=== PATIENT | male | born 1960 | race Caucasian/White ===

== ENCOUNTER 2022-07-12 09:41 | Outpatient (CLI) | payer OTHER, SELFPAY ==
--- NOTE | ~2022-07-12 | US_ITS ---
Abdominal Sonogram: Real-time sonographic imaging of the abdomen was performed. Clinical History: Abdominal pain Findings: The liver appears echogenic, with no evidence of mass lesion or bile duct dilatation. Main portal vein demonstrates normal direction of flow. The spleen is normal in size without evidence of focal lesion. The gallbladder is well distended, and appears normal with no evidence of gallstone or wall thickening. The common bile duct measures 5 mm. The visualized pancreas, aorta, and IVC are un remarkable. The right kidney measures 11.5 cm in length and the left kidney measures 12.8 cm. There is no hydronephrosis or renal calculus. Right renal cyst noted. Impression: Diffuse fatty infiltration of the liver. Reviewed, dictated and finalized at location M. NATURALIST Impression: Diffuse fatty infiltration of the liver.
== END 2022-07-12 09:42 | disposition home or self-care (01) ==
PROVIDERS: PCP Internal Medicine; Visit Provider Internal Medicine
DX: R10.9 Unspecified abdominal pain (principal); K76.0 Fatty (change of) liver, not elsewhere classified
CPT/HCPCS: 76700

== ENCOUNTER 2023-03-31 16:31 | Emergency (ER) | payer OTHER, SELFPAY ==
[2023-03-31 16:26] VITALS: BP 155/96; PULSE 114; RESP 18; TEMP 37.2; O2SAT 96
--- NOTE | 2023-03-31 16:46 | PC.NURSE ---
Patient refusing c collar, educated on possible risks. MD aware.
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
== END 2023-03-31 17:14 | disposition left against medical advice (07) ==
LOC: ANHED 16:53
PROVIDERS: Emergency Provider General Practice; PCP Internal Medicine
DX: S06.0XAA Concussion with loss of consciousness status unknown, initial encounter (principal); V28.49XA Other motorcycle driver injured in noncollision transport accident in traffic accident, initial encounter; I10 Essential (primary) hypertension; E78.5 Hyperlipidemia, unspecified; F41.9 Anxiety disorder, unspecified; Z87.891 Personal history of nicotine dependence; Z53.29 Procedure and treatment not carried out because of patient's decision for other reasons
CPT/HCPCS: 99283; L0140

== ENCOUNTER 2024-04-16 01:06 | Day surgery (SDC) | payer OTHER, SELFPAY ==
[2024-03-28 13:54] VITALS: BMI 32.1
[2024-04-16 06:07] VITALS: BP 140/88; PULSE 77; RESP 18; TEMP 36.4; O2SAT 100
[2024-04-16 06:16] VITALS: BMI 35.1
[2024-04-16] MEDS: LACTATED RINGERS 1,000 ML 150 ML IV CONT (06:30)
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
--- NOTE | 2024-04-16 07:32 | PM.HPGS ---
History of Present Illness History of Present Illness Consent: Risks, benefits, and alternatives have been discussed and questions answered. Patient agrees to proceed with procedure. Chief complaint: colon screen Narrative: Salvador Jennings is a 63 year old male here for screening colonoscopy, last one 11 years ago Review of Systems Review of Systems: All systems reviewed & are unremarkable except as noted in HPI and below PMFSH Past Medical History Medical History (Updated 04/16/24 @ 07:33 by Yousuf Michele MD) Anxiety Colon cancer screening Hyperlipidemia Hypertension Social History Social History Years smoked: 7 Smoking status: Former smoker Tobacco type: cigarettes Alcohol intake: current Drinks per week: 10 Alcohol use details: DRINKS Substance use: never Substance use type: does not use Living arrangements: with family Spiritual care concerns: No Meds Home Medications and Allergies Home Medications Medication Instructions Recorded Confirmed Type atorvastatin 10 mg tablet 10 mg PO DAILY 03/28/24 03/28/24 History fluoxetine 20 mg capsule 20 mg PO DAILY 03/28/24 03/28/24 History omeprazole 20 mg capsule,delayed 20 mg PO DAILY 03/28/24 03/28/24 History release psyllium husk 0.4 gram capsule 3 g PO 03/28/24 History (Daily Fiber) valsartan 160 1 tablet PO DAILY 03/28/24 03/28/24 History mg-hydrochlorothiazide 25 mg tablet Allergies Allergy/AdvReac Type Severity Reaction Status Date / Time No Known Allergies Allergy Verified 03/28/24 13:54 Vital Signs Vital Signs - 24 hr 04/16/24 06:07 Temperature 97.6 F Pulse Rate 77 Respiratory Rate 18 Blood Pressure 140/88 Pulse Oximetry 100 Oxygen Delivery Room Air Exam Const: General: comfortable and no acute distress HENMT: Face/Nose/Sinus: Normal nares present Eyes: General: appearance normal, both eyes and all related structures Neck: Neck: no JVD Resp: Auscultation: clear to auscultation bilaterally Cardio: Rate: regular rate Rhythm: regular rhythm GI: Inspection: non-distended GI Palp: Yes Soft to palpation Skin: General skin exam: normal color Neuro: General: gait normal Speech: normal speech Extrem: General: normal to inspection Psych: Mental Status: mental status grossly normal Assessment and Plan Assessment and plan (1) Colon cancer screening: Code(s): Z12.11 - Encounter for screening for malignant neoplasm of colon Status: Acute Assessment and Plan: colonoscopy
[2024-04-16 07:47] VITALS: BP 108/75; PULSE 83; RESP 22; O2SAT 96
[2024-04-16 07:57] VITALS: BP 113/90; PULSE 83; RESP 18; O2SAT 95
[2024-04-16 08:07] VITALS: BP 115/84; PULSE 74; RESP 19; O2SAT 97
== END 2024-04-16 08:13 | disposition home or self-care (01) ==
PROVIDERS: PCP Internal Medicine; Referring Provider Internal Medicine; Visit Provider Internal Medicine Gastroenterology
PROC: 0DJD8ZZ Inspection of Lower Intestinal Tract, Via Natural or Artificial Opening Endoscopic (ICD-10-PCS; CPT 45378; principal; 2024-04-16 07:30)
DX: Z12.11 Encounter for screening for malignant neoplasm of colon (principal); K64.8 Other hemorrhoids; K57.30 Diverticulosis of large intestine without perforation or abscess without bleeding; I10 Essential (primary) hypertension; E78.5 Hyperlipidemia, unspecified; F41.9 Anxiety disorder, unspecified; E66.9 Obesity, unspecified; Z68.35 Body mass index [BMI] 35.0-35.9, adult; Z86.0100 Personal history of colon polyps, unspecified; Z87.891 Personal history of nicotine dependence
CPT/HCPCS: 45378; J2003; J2704; J7120